=== PATIENT | male | born 1930 | race Caucasian/White ===

== ENCOUNTER 2018-10-10 12:34 | Observation (INO) | payer BC ==
--- NOTE | 2018-10-10 12:49 | PDOC ---
History of Present Illness - General Chief Complaint: Chest Pain Stated Complaint: CHEST PAIN Time Seen by Provider: 10/10/18 12:47 - History of Present Illness Initial Comments: 10/10/18 13:28 88M with with pmh of HTN, HLD and RI s/p pacemaker/defibrillator placement presents to the ED with weakness and right parasternal chest pain, dull constant for the past week. Pain subsided yesterday but came back today, worsening with stress and agitation. Pain doesn't radiate anywhere. Last stress test was in 2011. Denies shortness of breath, dizziness, abdominal pain, and dysuria. No N/V/D 10/10/18 14:31 PCP: Dr Lepe Care Transport Nurse: Dr Rodriguez 10/10/18 14:40 Past History - Past Medical History Allergies/Adverse Reactions: Allergies Allergy/AdvReac Type Severity Reaction Status Date / Time No Known Allergies Allergy Verified 08/02/12 00:38 Home Medications: Ambulatory Orders Amiodarone HCl [Cordarone -] 100 mg PO DAILY #0 tablet 08/03/12 Amlodipine Besylate [Norvasc -] 5 mg PO DAILY #0 tablet 08/03/12 Aspirin [ASA -] 81 mg PO DAILY #0 tab.chew 08/03/12 Carvedilol [Coreg] 25 mg PO BID #0 tablet 08/03/12 Enalapril Maleate [Vasotec -] 20 mg PO DAILY 10/10/18 Cardiac Disorders: Yes (defibrillator) HTN: Yes Hypercholesterolemia: Yes - Immunization History Td Vaccination: No - Suicide/Smoking/Psychosocial Hx Smoking Status: No Smoking History: Unknown if ever smoked Have you smoked in the past 12 months: No Number of Cigarettes Smoked Daily: 0 Hx Alcohol Use: No Drug/Substance Use Hx: No Hx Substance Use Treatment: No Cardiac Specific PMH - Complaint Specific PMHX Pacemaker: Yes Review of Systems - Review of Systems Able to Perform ROS?: Yes Is the patient limited Omani proficient: No Constitutional: No: Symptoms Reported HEENTM: No: Symptoms Reported Respiratory: No: Symptoms reported Cardiac (ROS): Yes: See HPI ABD/GI: No: Symptoms Reported : No: Symptoms Reported Musculoskeletal: No: Symptoms Reported Integumentary: No: Symptoms Reported Neurological: No: Symptoms reported All Other Systems: Reviewed and Negative *Physical Exam - Vital Signs Last Vital Signs Temp Pulse Resp BP Pulse Ox 98.2 F 67 16 127/67 100 10/10/18 13:09 10/10/18 13:09 10/10/18 13:09 10/10/18 13:09 10/10/18 13:09 - Physical Exam General Appearance: Yes: Nourished, Appropriately Dressed HEENT: positive: EOMI, MEÑO, Normal ENT Inspection Respiratory/Chest: positive: Lungs Clear, Normal Breath Sounds. negative: Chest Tender, Respiratory Distress Cardiovascular: positive: Regular Rhythm, Regular Rate, S1, S2 Gastrointestinal/Abdominal: positive: Normal Bowel Sounds, Flat, Soft. negative : Tender Musculoskeletal: positive: Normal Inspection. negative: CVA Tenderness Extremity: positive: Normal Capillary Refill, Normal Inspection, Normal Range of Motion Integumentary: positive: Normal Color, Dry, Warm Neurologic: positive: Fully Oriented, Alert, Normal Mood/Affect, Normal Response , Motor Strength 5/5 Heart Score/ECG Review - History History: Moderately suspicious - Electrocardiogram EKG: Non specific repolarization disturbance - Age Age: >/= 65 - Risk Factors Risk Factors Heart Score: Yes Hx Hypercholesterolemia, Yes Hx Hypertension, No Hx Diabetes, No Smoking History, No Positive family hx of cardiac disease, No Hx Obesity Based on the list above the patient has:: 1-2 risk factors - Troponin Troponin: </= normal limit - Score Heart Score - Total: 5 Moderate Sedation - Procedure Monitoring Vital Signs: Procedure Monitoring Vital Signs Temperature 98.2 F 10/10/18 13:09 Pulse Rate 67 10/10/18 13:09 Respiratory Rate 16 10/10/18 13:09 Blood Pressure 127/67 10/10/18 13:09 O2 Sat by Pulse Oximetry (%) 100 10/10/18 13:09 ED Treatment Course - LABORATORY CBC & Chemistry Diagram: 10/10/18 13:09 10/10/18 13:09 - ADDITIONAL ORDERS Additional order review: Laboratory Results 10/10/18 10/10/18 13:09 13:09 PT with INR 12.90 INR 1.09 PTT (Actin FS) 27.8 Sodium 137 Potassium 4.6 Chloride 104 Carbon Dioxide 27 Anion Gap 7 L BUN 20 H Creatinine 0.8 Creat Clearance w eGFR > 60 Random Glucose 86 Calcium 8.8 Magnesium 2.2 Total Bilirubin 0.5 AST 27 ALT 24 Alkaline Phosphatase 66 Troponin I < 0.02 B-Natriuretic Peptide 459.7 H Total Protein 6.4 Albumin 3.7 10/10/18 13:09 RBC 4.41 MCV 89.8 MCHC 34.8 RDW 14.5 MPV 10.0 Neutrophils % 68.1 Lymphocytes % 17.6 D Monocytes % 12.1 H Eosinophils % 1.5 Basophils % 0.7 Medical Decision Making - Medical Decision Making 10/10/18 14:07 ACS vs aortic dissection vs msk 10/10/18 14:11 Will chest basic labs, trops, EKG EKG: Atrial paced rhythm with prolonged AV conduction, left axis deviation , LBBB LBBB presents in previous EKG Will admit to Telemetry obs. *DC/Admit/Observation/Transfer Diagnosis at time of Disposition: Atypical chest pain - Discharge Dispostion Decision to Admit order: Yes Decision to Admit order Date/Time: Decision to Admit Order Category Date Time Status Decision to Admit to Hospital Routine Admission 10/10/18 14:39 Ordered - Referrals Referrals: Rubin Lepe MD [Primary Care Provider] - - Patient Instructions - Post Discharge Activity
--- NOTE | 2018-10-10 13:03 | PDOC ---
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 He denies defibrillator firing during this episode of pain. Denies exertion, alleviating or exacerbating factors. Allergies: NKDA Cornetist: Dr Rodriguez - Physicial Exam PE: 10/10/18 14:07 NAD, well appearing, MMM, nl conjunctiva, anicteric; neck supple. lungs clear, left chest wall with Defib in place, RRR, no murmurs. abdomen soft nontender. MUÑOZ x4, no focal neuro deficits. normal color for ethnicity, WWP. (+) trace edema to bilateral lower extremities. - Medical Decision Making 10/10/18 14:07 hpi as documented VS reviewed, wnl. EKG normal sinus rhythm, no interval abnormalities, wide QRS with paced pattern , LBBB from PPM/DEFIB, ST and T wave segments and morphology normal. Nonspecific T wave abnormalities coinciding with LBBB/pacing pattern, neg for Sgarbossa's criteria. Chest pain Heart score; HEART score 4 which denotes moderate probability for MACE at 6 wks Given risk factors including comorbidities, gender, personal h/o MS/ACS and cardiac arrest/?cardiomyopathy DDx includes ACS, angina, arrhythmia, CHF, chest pain NOS, costochondritis, GERD , pleurisy, anxiety, esophageal spasm. Low suspicion for pulmonary embolism or dissection. Plan for admit observation, to r/o ischemia, serial trops and EKG/tele monitoring. ASA administered, pain controlled, discussion with patient and family at bedside, questions answered. 10/10/18 14:09 10/10/18 14:45 Heart Score/ECG Review - History History: Slightly suspicious - Electrocardiogram EKG: Non specific repolarization disturbance - Age Age: >/= 65 - Risk Factors Risk Factors Heart Score: Yes Hx Hypercholesterolemia, Yes Hx Hypertension Based on the list above the patient has:: 1-2 risk factors - Troponin Troponin: </= normal limit - Score Heart Score - Total: 4 - ECG Impressions Normal ECG: No Comment:: 10/10/18 14:09 EKG normal sinus rhythm, no interval abnormalities, wide QRS with paced pattern , LBBB from PPM/DEFIB, ST and T wave segments and morphology normal. Nonspecific T wave abnormalities coinciding with LBBB/pacing pattern, neg for Sgarbossa's criteria.
[2018-10-10 13:47] LABS: BASO % 0.7 % (0-2.0); EOS % 1.5 % (0-4.5); HEMATOCRIT 39.6 % (35.4-49); HEMOGLOBIN 13.8 GM/dL (11.7-16.9); LYMPH % 17.6 % (8-40); MCH 31.2 pg (25.7-33.7); MCHC 34.8 g/dl (32.0-35.9); MEAN CELL VOLUME 89.8 fl (80-96); MONO % 12.1 % (3.8-10.2); NEUT % 68.1 % (42.8-82.8); PLATELET COUNT 116 K/MM3 (134-434); RBC 4.41 M/mm3 (4.00-5.60); RDW 14.5 % (11.9-15.9); WHITE BLOOD COUNT 4.6 K/mm3 (4.0-10.0)
[2018-10-10 13:58] LABS: INR 1.09 (0.83-1.09); PROTHROMBIN TIME (PATIENT) 12.9 SEC (9.7-13.0)
[2018-10-10 14:01] LABS: ACTIVATED PTT 27.8 SECONDS (25.2-36.5)
[2018-10-10 14:24] LABS: ALBUMIN 3.7 g/dl (3.4-5.0); ALK PHOS 66 U/L (45-117); ANION GAP 7 MMOL/L (8-16); BILIRUBIN,TOTAL 0.5 mg/dL (0.2-1); BLOOD UREA NITROGEN 20 mg/dL (7-18); CALCIUM 8.8 mg/dL (8.5-10.1); CHLORIDE 104 mmol/L (98-107); CO2 27 mmol/L (21-32); CREATININE 0.8 mg/dL (0.55-1.3); GLUCOSE,RANDOM 86 mg/dL (74-106); MAGNESIUM 2.2 mg/dL (1.8-2.4); N-TERMINAL BNP 459.7 pg/ml (5-450); POTASSIUM 4.6 mmol/L (3.5-5.1); SGOT/AST 27 U/L (15-37); SGPT/ALT 24 U/L (13-61); SODIUM 137 mmol/L (136-145); TOT PROT 6.4 g/dl (6.4-8.2)
[2018-10-10 14:55] LABS: URINE APPEARANCE CLEAR; URINE BILIRUBIN NEGATIVE (<2.0 mg/dL); URINE COLOR STRAW; URINE GLUCOSE (UA) NEGATIVE (NEGATIVE); URINE KETONE NEGATIVE (NEGATIVE); URINE LEUK ESTERASE NEGATIVE (NEGATIVE); URINE NITRITE NEGATIVE (NEGATIVE); URINE PROTEIN NEGATIVE (NEGATIVE); URINE UROBILINOGEN NEGATIVE mg/dL (0.2-1.0)
--- NOTE | 2018-10-10 15:01 | CON.CARD ---
Consult Consult Specialty:: Cardiology Referred by:: Emergency Medicine Reason for Consultation:: Chest pain - History of Present Illness Chief Complaint: Chest pain History of Present Illness: 88M with with pmh of HTN, HLD and CAD s/p TX, mod decreased LV fxn s/p defibrillator, battery change 05/17/2017, last seen by Dr. Rodriguez 09/19/2018 presents for non-exertional right chest burning since Sat, improved with standing up and ambulating, denies associated sxs of dyspnea, near or true syncope, palpitations, orthopnea, PND, LE edema or ICD discharge. PCP: Dr Lepe Manufacturing Baker: Dr Rodriguez - History Source History Provided By: Patient Limitations to Obtaining History: No Limitations - Past Medical History Cardio/Vascular: Yes: CHF, HTN - Past Surgical History Past Surgical History: Yes: Permanent Pacemaker - Alcohol/Substance Use Hx Alcohol Use: No - Smoking History Smoking history: Unknown if ever smoked Have you smoked in the past 12 months: No Aproximately how many cigarettes per day: 0 Home Medications - Allergies Allergies/Adverse Reactions: Allergies Allergy/AdvReac Type Severity Reaction Status Date / Time No Known Allergies Allergy Verified 08/02/12 00:38 - Home Medications Home Medications: Ambulatory Orders Amiodarone HCl [Cordarone -] 100 mg PO DAILY #0 tablet 08/03/12 Amlodipine Besylate [Norvasc -] 5 mg PO DAILY #0 tablet 08/03/12 Aspirin [ASA -] 81 mg PO DAILY #0 tab.chew 08/03/12 Carvedilol [Coreg] 25 mg PO BID #0 tablet 08/03/12 Enalapril Maleate [Vasotec -] 20 mg PO BID 10/10/18 Review of Systems - Review of Systems Cardiovascular: reports: Chest Pain Vital Signs: Vital Signs Temperature 98.2 F 10/10/18 13:09 Pulse Rate 67 10/10/18 13:09 Respiratory Rate 16 10/10/18 13:09 Blood Pressure 127/67 10/10/18 13:09 O2 Sat by Pulse Oximetry (%) 100 10/10/18 13:09 Constitutional: Yes: No Distress, Calm, Thin Neck: Yes: Supple Respiratory: Yes: Regular, CTA Bilaterally Gastrointestinal: Yes: Normal Bowel Sounds, Soft Cardiovascular: Yes: Regular Rate and Rhythm JVD: No Carotid Bruit: No Heart Sounds: Yes: S1, S2 Murmur: Yes: Systolic Murmur, Grade 1 Edema: No - Other Data Labs, Other Data: CBC, BMP 10/10/18 13:09 10/10/18 13:09 INR, PTT INR 1.09 (0.83-1.09) 10/10/18 13:09 Troponin, BNP 10/10/18 13:09 Troponin I < 0.02 B-Natriuretic Peptide 459.7 H Troponin, BNP 10/10/18 13:09 Troponin I < 0.02 B-Natriuretic Peptide 459.7 H Atrial paced @ 60 LAD, LBBB similar to previous Ejection Fraction %: LVEF < 40 % Imaging - Results Chest X-ray: Report Reviewed (Basilar ATX) Problem List - Problems (1) Dilated cardiomyopathy Code(s): I42.0 - DILATED CARDIOMYOPATHY (2) ICD (implantable cardioverter-defibrillator) in place Code(s): Z95.810 - PRESENCE OF AUTOMATIC (IMPLANTABLE) CARDIAC DEFIBRILLATOR (3) Atypical chest pain Code(s): R07.89 - OTHER CHEST PAIN (4) Hypertensive cardiomyopathy Code(s): I11.9 - HYPERTENSIVE HEART DISEASE WITHOUT HEART FAILURE; I43 - CARDIOMYOPATHY IN DISEASES CLASSIFIED ELSEWHERE Qualifiers: Heart failure presence: without heart failure Qualified Code(s): I11.9 - Hypertensive heart disease without heart failure; I43 - Cardiomyopathy in diseases classified elsewhere Assessment/Plan 09/05/2016 Lexiscan MIBI: Normal perfusion with moderate-severe decreased LVEF 37% 05/04/17 Echo: Mildly dilated and moderate decreased LVEF 39-41%, mild LAE, mild -mod MR, TR RVSP 33 mmHg 09/19/2018 ICD check, battery life 7.9 years, no NSVT, therapies delivered, Optivol normal, A-paced 75%, RV 0%, appropropriate sensing and pacing 1. Atypical positional chest pain suspect GERD h/o normal cors on last cath 2008 2. Moderate-severe DCM 3. s/p ICD 4. HTN P:1. Ruling out for [place] 2. Continue amio 100 qd, Norvasc 5 qd, ASA 81 qd, Lipitor 40 qd, carvedilol 25 bid, vasotec 20 bid 3. Zantac 150 bid and antacids as needed 4. Has f/u with Dr. William Rodriguez, consider repeat stress testing as outpatient 5. Thank you for consultative opportunity
--- NOTE | 2018-10-10 15:41 | EKG ---
Test Reason : Blood Pressure : / mmHG Vent. Rate : 060 BPM Atrial Rate : 060 BPM P-R Int : 000 ms QRS Dur : 162 ms QT Int : 490 ms P-R-T Axes : 000 -67 115 degrees QTc Int : 490 ms POOR DATA QUALITY, INTERPRETATION MAY BE ADVERSELY AFFECTED Atrial-paced rhythm with prolonged AV conduction LEFT AXIS DEVIATION LEFT BUNDLE BRANCH BLOCK ABNORMAL ECG WHEN COMPARED WITH ECG OF 02-AUG-2012 07:33, NO SIGNIFICANT CHANGE WAS FOUND Confirmed by NURY ORTIZ MD ([id number]) on 10/10/2018 3:41:26 PM Referred By: Confirmed By:NURY ORTIZ MD
--- NOTE | 2018-10-10 16:07 | HP ---
Admitting History and Physical - Primary Care Physician PCP: Rubin Lepe - Admission Chief Complaint: chest discomfort History of Present Illness: intermittent right sided/restrosternal pain for past week,came and went, but today returned with increased severity so he came to er. not associated with food, activity or trauma has been compliant with his meds has not been sick History Source: Patient Limitations to Obtaining History: No Limitations - Past Medical History Cardiovascular: Yes: CAD (s/p [place], cardiac arrest in 1997), HTN - Past Surgical History Past Surgical History: Yes: Permanent Pacemaker - Smoking History Smoking history: Unknown if ever smoked Have you smoked in the past 12 months: No Aproximately how many cigarettes per day: 0 - Alcohol/Substance Use Hx Alcohol Use: No - Social History ADL: Independent History of Recent Travel: No Home Medications - Allergies Allergies/Adverse Reactions: Allergies Allergy/AdvReac Type Severity Reaction Status Date / Time No Known Allergies Allergy Verified 08/02/12 00:38 - Home Medications Home Medications: Ambulatory Orders RX: Amiodarone HCl [Cordarone -] 100 mg PO DAILY #0 tablet 08/03/12 RX: Amlodipine Besylate [Norvasc -] 5 mg PO DAILY #0 tablet 08/03/12 RX: Aspirin [ASA -] 81 mg PO DAILY #0 tab.chew 08/03/12 RX: Carvedilol [Coreg] 25 mg PO BID #0 tablet 08/03/12 RX: Enalapril Maleate [Vasotec -] 20 mg PO BID 10/10/18 Family Disease History - Family Disease History Family History: Unremarkable Review of Systems - Review of Systems Constitutional: reports: No Symptoms Eyes: reports: No Symptoms HENT: reports: No Symptoms Neck: reports: No Symptoms Cardiovascular: reports: Chest Pain. denies: Palpitations, Shortness of Breath Respiratory: reports: No Symptoms. denies: SOB on Exertion, Wheezing Gastrointestinal: reports: No Symptoms. denies: Abdominal Pain, Bloating, Dysphagia, Indigestion, Vomiting Genitourinary: reports: No Symptoms Integumentary: reports: No Symptoms Neurological: reports: No Symptoms Psychiatric: reports: No Symptoms Physical Examination Vital Signs: Vital Signs Temperature 98.2 F 10/10/18 13:09 Pulse Rate 67 10/10/18 16:00 Respiratory Rate 14 10/10/18 16:00 Blood Pressure 125/87 10/10/18 16:00 O2 Sat by Pulse Oximetry (%) 99 10/10/18 16:00 Constitutional: Yes: Well Nourished, No Distress, Calm Eyes: Yes: Conjunctiva Clear, EOM Intact HENT: Yes: Normocephalic Neck: Yes: Trachea Midline Cardiovascular: Yes: Regular Rate and Rhythm Respiratory: Yes: CTA Bilaterally Gastrointestinal: Yes: Normal Bowel Sounds, Soft Musculoskeletal: Yes: WNL, Other (no chest wall tenderness) Extremities: Yes: WNL Edema: No Peripheral Pulses WNL: Yes Neurological: Yes: WNL Psychiatric: Yes: WNL Labs: CBC, BMP 10/10/18 13:09 10/10/18 13:09 CK troponin negative, BNP <500 Imaging - Results Chest X-ray: Report Reviewed EKG: Report Reviewed Problem List - Problems (1) Atypical chest pain Code(s): R07.89 - OTHER CHEST PAIN (2) Dilated cardiomyopathy Code(s): I42.0 - DILATED CARDIOMYOPATHY (3) Hypertensive cardiomyopathy Code(s): I11.9 - HYPERTENSIVE HEART DISEASE WITHOUT HEART FAILURE; I43 - CARDIOMYOPATHY IN DISEASES CLASSIFIED ELSEWHERE Qualifiers: Heart failure presence: without heart failure Qualified Code(s): I11.9 - Hypertensive heart disease without heart failure; I43 - Cardiomyopathy in diseases classified elsewhere Assessment/Plan GERD? serial cardiac enzymes r/o ACS Echo cardiology f/up appreciated
[2018-10-10 17:55] VITALS: BMI 23.7
[2018-10-10] MEDS ORDERED: MAG HYDROX/AL HYDROX/SIMETH 30 ML UNIT-DOSE CUP PO PRN (18:31)
[2018-10-10] MEDS: CARVEDILOL 25 MG TABLET (FP) PO SCH (21:29)
[2018-10-10] MEDS: RANITIDINE HCL 150 MG TABLET (FP) PO SCH (21:29)
[2018-10-10] MEDS: ENALAPRIL MALEATE 10 MG TABLET (FP) PO SCH (21:29)
[2018-10-11 03:30] VITALS: PULSE 60
--- NOTE | 2018-10-11 08:50 | PN ---
Progress Note (short form) - Note Progress Note: no complaints s1s2 rrr lungs cta abd soft nt no edema serial cardiac enzymes are negative if echo is ok will dc home with close outpt f/up continue [id number] for possible gerd Problem List - Problems (1) Atypical chest pain Code(s): R07.89 - OTHER CHEST PAIN (2) Dilated cardiomyopathy Code(s): I42.0 - DILATED CARDIOMYOPATHY (3) Hypertensive cardiomyopathy Code(s): I11.9 - HYPERTENSIVE HEART DISEASE WITHOUT HEART FAILURE; I43 - CARDIOMYOPATHY IN DISEASES CLASSIFIED ELSEWHERE Qualifiers: Heart failure presence: without heart failure Qualified Code(s): I11.9 - Hypertensive heart disease without heart failure; I43 - Cardiomyopathy in diseases classified elsewhere
--- NOTE | 2018-10-11 09:33 | PN ---
Progress Note, Physician History of Present Illness: Non-exertional right chest burning has resolved, denies dyspnea. PCP: Dr Lepe Automatic Spinning Lathe Setter: Dr Rodriguez - Current Medication List Current Medications: Active Medications Al Hydroxide/Mg Hydroxide (Mylanta Oral Suspension -) 30 ml PO Q6H PRN PRN Reason: DYSPEPSIA Amiodarone HCl (Cordarone -) 100 mg PO DAILY [facility] Amlodipine Besylate (Norvasc -) 5 mg PO DAILY [facility] Aspirin (Asa -) 81 mg PO DAILY [facility] Carvedilol (Coreg -) 25 mg PO BID [facility] Last Admin: 10/10/18 21:29 Dose: 25 mg Enalapril Maleate (Vasotec -) 20 mg PO BID [facility] Last Admin: 10/10/18 21:29 Dose: 20 mg Ranitidine HCl (Zantac -) 150 mg PO BID [facility] Last Admin: 10/10/18 21:29 Dose: 150 mg - Objective Vital Signs: Vital Signs Temperature 98.3 F 10/11/18 01:00 Pulse Rate 60 10/11/18 05:00 Respiratory Rate 18 10/11/18 05:00 Blood Pressure 119/58 L 10/11/18 05:00 O2 Sat by Pulse Oximetry (%) 97 10/10/18 16:40 Constitutional: Yes: No Distress, Calm, Thin Neck: Yes: Supple Cardiovascular: Yes: Regular Rate and Rhythm Respiratory: Yes: Regular, CTA Bilaterally Gastrointestinal: Yes: Normal Bowel Sounds, Soft Edema: No Labs: CBC, BMP 10/10/18 13:09 10/10/18 13:09 INR, PTT INR 1.09 (0.83-1.09) 10/10/18 13:09 - ....Imaging EKG: Report Reviewed (Tele: A-paced) Problem List - Problems (1) Dilated cardiomyopathy Code(s): I42.0 - DILATED CARDIOMYOPATHY (2) ICD (implantable cardioverter-defibrillator) in place Code(s): Z95.810 - PRESENCE OF AUTOMATIC (IMPLANTABLE) CARDIAC DEFIBRILLATOR (3) Atypical chest pain Code(s): R07.89 - OTHER CHEST PAIN (4) Hypertensive cardiomyopathy Code(s): I11.9 - HYPERTENSIVE HEART DISEASE WITHOUT HEART FAILURE; I43 - CARDIOMYOPATHY IN DISEASES CLASSIFIED ELSEWHERE Qualifiers: Heart failure presence: without heart failure Qualified Code(s): I11.9 - Hypertensive heart disease without heart failure; I43 - Cardiomyopathy in diseases classified elsewhere Assessment/Plan 09/05/2016 Lexiscan MIBI: Normal perfusion with moderate-severe decreased LVEF 37% 05/04/17 Echo: Mildly dilated and moderate decreased LVEF 39-41%, mild LAE, mild -mod MR, TR RVSP 33 mmHg 09/19/2018 ICD check, battery life 7.9 years, no NSVT, therapies delivered, Optivol normal, A-paced 75%, RV 0%, appropropriate sensing and pacing 1. Atypical positional chest pain suspect GERD h/o normal cors on last cath 2008 2. Moderate-severe DCM 3. s/p ICD 4. HTN P:1. Ruled out for [place], echo pending 2. Continue amio 100 qd, Norvasc 5 qd, ASA 81 qd, Lipitor 40 qd, carvedilol 25 bid, vasotec 20 bid 3. Zantac 150 bid and antacids as needed 4. D/c planning, has f/u with Dr. William Rodriguez, consider repeat stress testing as outpatient
[2018-10-11] MEDS ORDERED: amLODIPine BESYLATE 5 MG TABLET (FP) PO SCH (10:00)
[2018-10-11] MEDS ORDERED: AMIODARONE HCL 200 MG TABLET (FP) PO SCH (10:00)
[2018-10-11] MEDS ORDERED: ASPIRIN 81 MG CHEWABLE TABLETS PO SCH (10:00)
[2018-10-11] MEDS: CARVEDILOL 25 MG TABLET (FP) PO SCH (10:48)
[2018-10-11] MEDS: ENALAPRIL MALEATE 10 MG TABLET (FP) PO SCH (10:48)
[2018-10-11] MEDS: RANITIDINE HCL 150 MG TABLET (FP) PO SCH (10:48)
--- NOTE | 2018-10-11 13:48 | ECHO ---
Version: 1 Name: MICHEAL KING Exam: Adult Echocardiogram Study Date: 10/11/2018, 11:01 AM Age: 88 Years MMode/2D Measurements & Calculations IVSd: 0.77 cm LVIDs: 4.4 cm LVIDd: 5.6 cm LVPWd: 0.85 cm LVOT diam: 2.23 cm Ao root diam: 3.0 cm LA dimension: 4.1 cm Doppler Measurements & Calculations MV E max rodolfo: 51.3 cm/sec Med E/e': 10.3 MV A max rodolfo: 69.1 cm/sec Med Peak E' Rodolfo: 5.0 cm/sec MV E/A: 0.74 Lat E/e': 7.3 Lat Peak E' Rodolfo: 7.0 cm/sec MR max P.2 mmHg Ao max P.0 mmHg Ao V2 max: 158.1 cm/sec TR max rodolfo: 275.7 cm/sec TR max P.7 mmHg Left Ventricle The left ventricle is borderline dilated. Left ventricular systolic function is severely reduced. Ej ection Fraction = 20-25%. Right Ventricle There is a pacemaker lead in the right ventricle. Atria The left atrium is mildly dilated. Mitral Valve The mitral valve is grossly normal. There is no mitral valve stenosis. There is mild mitral regurgit ation. Tricuspid Valve The tricuspid valve is normal in structure and function. There is moderate tricuspid regurgitation. Right ventricular systolic pressure is elevated at 40-50mmHg. Aortic Valve The aortic valve is not well visualized. There is mild aortic sclerosis.;. No hemodynamically signif icant valvular aortic stenosis. No aortic regurgitation is present. Pulmonic Valve The pulmonic valve is not well seen, but is grossly normal. Great Vessels The aortic root is normal size. Pericardium/Pleura There is no pericardial effusion. Summary Statements The left ventricle is borderline dilated. Left ventricular systolic function is severely reduced. Ejection Fraction = 20-25%. There is a pacemaker lead in the right ventricle. The left atrium is mildly dilated. There is mild mitral regurgitation. There is moderate tricuspid regurgitation. Right ventricular systolic pressure is elevated at 40-50mmHg. There is no pericardial effusion. MD Peter *Garland 10/11/2018, 1:47 PM Ordering Physician: Paris Lundberg Referring Physician: PARIS LUNDBERG Performed By: Vanessa Javier
[2018-10-11 15:30] VITALS: BP 104/55; TEMP 98.1
--- NOTE | 2018-10-11 19:15 | DS ---
Physical Examination Vital Signs: Vital Signs Temperature 98.1 F 10/11/18 14:00 Pulse Rate 60 10/11/18 14:00 Respiratory Rate 20 10/11/18 11:23 Blood Pressure 104/55 L 10/11/18 14:00 O2 Sat by Pulse Oximetry (%) 97 10/11/18 11:23 Constitutional: Yes: No Distress, Calm Eyes: Yes: EOM Intact HENT: Yes: Normocephalic Neck: Yes: Trachea Midline Cardiovascular: Yes: Regular Rate and Rhythm Respiratory: Yes: CTA Bilaterally Gastrointestinal: Yes: Normal Bowel Sounds, Soft Edema: No Peripheral Pulses WNL: Yes Neurological: Yes: WNL Labs: CBC, BMP 10/10/18 13:09 10/10/18 13:09 Discharge Summary Reason For Visit: ATYPICAL CHEST PAIN Hospital Course: admitted for atypical chest pain suspect GERD known history of cardiomyopathy with AICD present pain free feels well serial cardiac enzymes are normal echo reviewed and d/w medically stable to dc home with close outpt f/up continue present regimen Condition: Fair - Instructions Referrals: Rubin Lepe MD [Primary Care Provider] - Disposition: HOME - Home Medications Comprehensive Discharge Medication List: Ambulatory Orders Amiodarone HCl [Cordarone -] 100 mg PO DAILY #0 tablet 08/03/12 Amlodipine Besylate [Norvasc -] 5 mg PO DAILY #0 tablet 08/03/12 Aspirin [ASA -] 81 mg PO DAILY #0 tab.chew 08/03/12 Carvedilol [Coreg] 25 mg PO BID #0 tablet 08/03/12 Enalapril Maleate [Vasotec -] 20 mg PO BID 10/10/18 Ranitidine [Zantac -] 150 mg PO BID #60 tablet 10/11/18
== END 2018-10-11 16:00 | disposition home or self-care (01) ==
LOC: JER 12:34 → JERBED 14:39 → J4W 16:36
PROVIDERS: ADMIT Internal Medicine; ATTEND Internal Medicine
DX: R07.89 Other chest pain (principal); I11.9 Hypertensive heart disease without heart failure; I25.2 Old myocardial infarction; I25.10 Atherosclerotic heart disease of native coronary artery without angina pectoris; I42.0 Dilated cardiomyopathy; I43 Cardiomyopathy in diseases classified elsewhere; I44.7 Left bundle-branch block, unspecified; E78.5 Hyperlipidemia, unspecified; Z86.74 Personal history of sudden cardiac arrest; Z95.810 Presence of automatic (implantable) cardiac defibrillator; Z79.82 Long term (current) use of aspirin
CPT/HCPCS: 36415; 71045-TC-FY; 80053; 81003; 82550; 83735; 83880; 84443; 84484; 85025; 85610; 85730; 87086; 93005; 93010; 93306-TC; 99285-25; G0378